=== PATIENT | male | born 1995 | race Hispanic/Latino ===

== ENCOUNTER → 2018-07-28 | Outpatient (CLI) | payer OTHER | END | disposition home or self-care (01) | LOC: RAH 11:44 | PROVIDERS: ATTEND Nurse Practitioner Family | DX: R05 Cough (principal); F32.9 Major depressive disorder, single episode, unspecified; F41.0 Panic disorder [episodic paroxysmal anxiety] | CPT/HCPCS: 71046 ==

== ENCOUNTER → 2018-08-01 | Outpatient (CLI) | payer OTHER ==
[2018-08-01 10:42] LABS: BASOPHILS % (AUTO) 1.4 % (0.0-5.0); EOSINOPHILS % (AUTO) 0.4 % (0.0-8.0); HEMATOCRIT 54.1 % (42-54); LYMPHOCYTES % (AUTO) 28.4 % (21.0-51.0); MEAN CORPUSCULAR HEMOGLOBIN 29.1 pg (27.0-33.0); MEAN CORPUSCULAR HGB CONC 33.9 g/dL (32.0-36.0); MONOCYTES % (AUTO) 6.3 % (3.0-13.0); NEUTROPHILS % (AUTO) 63.5 % (40.0-77.0); PLATELET COUNT (AUTO) 284 K/uL (130-400); RED BLOOD CELL COUNT(AUTO) 6.29 MIL/uL (4.50-6.20); RED CELL DISTRIBUTION WIDTH 13.5 % (11.0-15.5)
[2018-08-01 10:43] LABS: APPEARANCE,URINE Clear (CLEAR); BILIRUBIN,URINE Negative (NEGATIVE); COLOR,URINE Yellow (YELLOW); GLUCOSE, URINE (UA) Negative (NEGATIVE); KETONES,URINE Negative (NEGATIVE); LEUKOCYTE ESTERASE ,URINE Negative (NEGATIVE); NITRATE,URINE Negative (NEGATIVE); OCCULT BLOOD,URINE Negative (NEGATIVE); PH,URINE 5.5 (5.0-8.0); PROTEIN,URINE Negative (NEGATIVE); UROBILINOGEN,URINE 0.2 mg/dL (0.2-1.0)
[2018-08-01 11:03] LABS: ALBUMIN 4.1 g/dL (3.5-5.0); BILIRUBIN,TOTAL 0.7 mg/dL (0.2-1.0); CREATININE 0.7 mg/dL (0.5-1.5); POTASSIUM 3.7 mmol/L (3.5-5.1); THYROID STIMULATING HORMONE 1.41 uIU/mL (0.36-3.74); TOTAL PROTEIN, SERUM 7.7 g/dL (6.0-8.3)
[2018-08-01 11:50] LABS: ERYTHROCYTE SEDIMENTATION RATE 1 MM/HR (0-15)
== END | disposition home or self-care (01) ==
LOC: LAB 10:13
PROVIDERS: ATTEND Nurse Practitioner Family
DX: R05 Cough (principal); F32.9 Major depressive disorder, single episode, unspecified; F41.0 Panic disorder [episodic paroxysmal anxiety]
CPT/HCPCS: 36415; 80053; 80061; 81003; 82306; 84439; 84443; 85025; 85651

== ENCOUNTER 2018-11-29 08:26 | Emergency (ER) | payer OTHER ==
[2018-11-29] MEDS ORDERED: LIDOCAINE HCL-MPF 1% 2ML VIAL ONE (09:10)
[2018-11-29] MEDS ORDERED: DEXAMETHASONE SOD PHOSPHATE 4 MG/ML 1ML VIAL ONE (09:10)
[2018-11-29] MEDS ORDERED: CEFTRIAXONE SODIUM 1 GM ONE (09:10)
== END 2018-11-29 09:39 | disposition home or self-care (01) ==
LOC: EDH 08:26
DX: J02.9 Acute pharyngitis, unspecified (principal); J45.909 Unspecified asthma, uncomplicated; Z88.1 Allergy status to other antibiotic agents; Z72.0 Tobacco use
CPT/HCPCS: 87880; 96372 ×2; 99284; J0696; J1100; J3490

== ENCOUNTER 2018-12-01 18:16 | Inpatient (IN) | payer OTHER ==
[~2018-12-01] VITALS: Ht 172.7 cm; Wt 142.7 kg
[2018-12-01 18:45] LABS: BASOPHILS % (AUTO) 1.1 % (0.0-5.0); EOSINOPHILS % (AUTO) 0.9 % (0.0-8.0); HEMATOCRIT 48.1 % (42-54); LYMPHOCYTES % (AUTO) 26.4 % (21.0-51.0); MEAN CORPUSCULAR HEMOGLOBIN 28.2 pg (27.0-33.0); MEAN CORPUSCULAR HGB CONC 33.2 g/dL (32.0-36.0); MEAN CORPUSCULAR VOLUME 84.9 fL (79-99); MONOCYTES % (AUTO) 4.6 % (3.0-13.0); PLATELET COUNT (AUTO) 282 K/uL (130-400); RED BLOOD CELL COUNT(AUTO) 5.67 MIL/uL (4.50-6.20); RED CELL DISTRIBUTION WIDTH 12.9 % (11.0-15.5); WHITE BLOOD COUNT (AUTO) 15.1 K/uL (4.8-10.8)
[2018-12-01 19:04] LABS: CREATININE 0.8 mg/dL (0.5-1.5); POTASSIUM 3.8 mmol/L (3.5-5.1)
[2018-12-01] MEDS ORDERED: IOHEXOL-350 50ML VIAL IV ONE (19:04)
[2018-12-01 19:08] LABS: ALBUMIN 3.7 g/dL (3.5-5.0); BILIRUBIN,DIRECT 0.1 mg/dL (0.0-0.3); BILIRUBIN,TOTAL 0.2 mg/dL (0.2-1.0)
[2018-12-01 19:17] LABS: APPEARANCE,URINE Clear (CLEAR); BILIRUBIN,URINE Negative (NEGATIVE); COLOR,URINE Yellow (YELLOW); GLUCOSE, URINE (UA) Negative (NEGATIVE); KETONES,URINE Negative (NEGATIVE); LEUKOCYTE ESTERASE ,URINE Negative (NEGATIVE); NITRATE,URINE Negative (NEGATIVE); OCCULT BLOOD,URINE Negative (NEGATIVE); PH,URINE 5.5 (5.0-8.0); PROTEIN,URINE Negative (NEGATIVE); UROBILINOGEN,URINE 0.2 mg/dL (0.2-1.0)
[2018-12-01] MEDS ORDERED: CLINDAMYCIN 900 MG/D5% WATER 50 ML IV ONE (20:17)
[2018-12-02] MEDS ORDERED: HYDROCODONE/ACETAMINOPHEN 5/325 MG TAB PO PRN
[2018-12-02] MEDS ORDERED: ONDANSETRON HCL 4 MG/2 ML VIAL IV PRN
[2018-12-02 00:20] VITALS: BP 150/91
[2018-12-02] MEDS ORDERED: SODIUM CHLORIDE 0.9% 250 ML IV ONE (01:43)
[2018-12-02] MEDS: HYDROCODONE/ACETAMINOPHEN 5/325 MG TAB PO PRN ×3 (01:54→23:06)
[2018-12-02] MEDS ORDERED: CLINDAMYCIN 600 MG/D5% WATER 50 ML IV ONE (04:00)
[2018-12-02] MEDS: CLINDAMYCIN 600 MG/D5% WATER 50 ML IV SCH ×3 (04:02→21:44)
[2018-12-02 04:25] VITALS: BP 135/57
[2018-12-02 07:30] VITALS: BP 108/58
[2018-12-02] MEDS: FAMOTIDINE/PF 20 MG/2 ML VIAL IV SCH ×2 (09:25→21:44)
[2018-12-02] MEDS: PREDNISONE 20 MG TABLET PO SCH (09:25)
[2018-12-02 11:00] VITALS: BP 144/87
--- NOTE | 2018-12-02 12:18 | NUR ---
DCP CM met with pt discussed dc plans. Pt is independent prior to admission, lives at home with parents. Denies any equipments/services. Pt feels safe to go back home, mother able to assist with transportation and needs. DC plan to home once stable. CM to cont to follow up. Addendum: 12/02/18 at 1219 by KATJA THOMAS LVN CM Amended: Links added.
[2018-12-02 16:00] VITALS: BP 133/79
[2018-12-02 20:00] VITALS: BP 158/82
[2018-12-02] MEDS: NICOTINE 14 MG/ 24 HR PATCH TD SCH (21:44)
[2018-12-03] VITALS: BP 132/76
[2018-12-03 04:00] VITALS: BP 128/95
[2018-12-03] MEDS: CLINDAMYCIN 600 MG/D5% WATER 50 ML IV SCH (05:48)
[2018-12-03 06:06] LABS: BASOPHILS % (AUTO) 0.4 % (0.0-5.0); EOSINOPHILS % (AUTO) 0.9 % (0.0-8.0); HEMATOCRIT 45.9 % (42-54); LYMPHOCYTES % (AUTO) 27.4 % (21.0-51.0); MEAN CORPUSCULAR HEMOGLOBIN 28.9 pg (27.0-33.0); MEAN CORPUSCULAR HGB CONC 33.9 g/dL (32.0-36.0); MEAN CORPUSCULAR VOLUME 85.4 fL (79-99); MONOCYTES % (AUTO) 6.1 % (3.0-13.0); NEUTROPHILS % (AUTO) 65.2 % (40.0-77.0); NUCLEATED RED BLOOD CELLS 0.1 % (0.0-0.19); PLATELET COUNT (AUTO) 243 K/uL (130-400); RED BLOOD CELL COUNT(AUTO) 5.38 MIL/uL (4.50-6.20); RED CELL DISTRIBUTION WIDTH 12.7 % (11.0-15.5); WHITE BLOOD COUNT (AUTO) 14.3 K/uL (4.8-10.8)
[2018-12-03 06:23] LABS: CREATININE 0.8 mg/dL (0.5-1.5); POTASSIUM 4.1 mmol/L (3.5-5.1)
[2018-12-03 07:30] VITALS: BP 126/65
[2018-12-03] MEDS: PREDNISONE 20 MG TABLET PO SCH (09:41)
[2018-12-03] MEDS: FAMOTIDINE/PF 20 MG/2 ML VIAL IV SCH (09:42)
[2018-12-03] MEDS: NICOTINE 14 MG/ 24 HR PATCH TD SCH (09:42)
[2018-12-03] MEDS ORDERED: PRED10TA3 PO (10:09)
[2018-12-03] MEDS ORDERED: CLIN300C9 PO (10:09)
== END 2018-12-03 12:53 | disposition home or self-care (01) | DRG 645 ==
LOC: EDH 18:16 → EDHIP 23:25 → 3DH 23:51
PROVIDERS: ADMIT Internal Medicine; ATTEND Internal Medicine
DX: E04.1 Nontoxic single thyroid nodule (principal); F12.90 Cannabis use, unspecified, uncomplicated; F17.210 Nicotine dependence, cigarettes, uncomplicated; D72.829 Elevated white blood cell count, unspecified; J45.909 Unspecified asthma, uncomplicated; Z88.0 Allergy status to penicillin; Z88.8 Allergy status to other drugs, medicaments and biological substances
CPT/HCPCS: 36415; 70491; 80048; 80076; 81003; 83605; 83690; 85025; 87040; 87880; G0378; J3490; J7030; Q9967

== ENCOUNTER 2019-01-05 10:13 | Day surgery (SDC) | payer OTHER ==
[2018-12-30 11:04] LABS: BASOPHILS % (AUTO) 1.2 % (0.0-5.0); EOSINOPHILS % (AUTO) 1.8 % (0.0-8.0); HEMATOCRIT 47.3 % (42-54); LYMPHOCYTES % (AUTO) 28.6 % (21.0-51.0); MEAN CORPUSCULAR HEMOGLOBIN 28.9 pg (27.0-33.0); MEAN CORPUSCULAR VOLUME 84.8 fL (79-99); MONOCYTES % (AUTO) 5.8 % (3.0-13.0); NEUTROPHILS % (AUTO) 62.6 % (40.0-77.0); PLATELET COUNT (AUTO) 230 K/uL (130-400); RED BLOOD CELL COUNT(AUTO) 5.58 MIL/uL (4.50-6.20); RED CELL DISTRIBUTION WIDTH 12.9 % (11.0-15.5); WHITE BLOOD COUNT (AUTO) 9.4 K/uL (4.8-10.8)
[2018-12-30 11:42] VITALS: BP 141/70
[2018-12-30 12:15] LABS: INR 0.94 (0.85-1.15); PARTIAL THROMBOPLASTIN TIME 30.1 SEC (26.3-35.5); PROTHROMBIN TIME 9.9 SEC (9.6-11.6)
[~2019-01-05] VITALS: Ht 170.2 cm; Wt 145.8 kg
[2019-01-05] VITALS (17 sets, daily range): BP systolic 115–151; BP diastolic 61–87
[2019-01-05] MEDS ORDERED: LIDOCAINE 1%-EPI 1:100,000 20 ML VIAL IJ ONE (11:12)
[2019-01-05] MEDS ORDERED: ONDANSETRON HCL 4 MG/2 ML VIAL ONE (11:20)
[2019-01-05] MEDS ORDERED: DEXAMETHASONE SOD PHOSPHATE 10MG/ML 1ML VIAL ONE (11:20)
[2019-01-05] MEDS ORDERED: MIDAZOLAM HCL 1 MG/ML 2ML VIAL ONE (11:20)
[2019-01-05] MEDS ORDERED: SUCCINYLCHOLINE 200MG/10ML SYR ONE (11:20)
[2019-01-05] MEDS ORDERED: ROCURONIUM 10MG/1ML SYR 10 MG/ML ML ONE (11:20)
[2019-01-05] MEDS ORDERED: NEOSTIGMINE 5MG/5ML SYR IV ONE (11:20)
[2019-01-05] MEDS ORDERED: PROPOFOL 10 MG/ML 20ML VIAL IV ONE (11:20)
[2019-01-05] MEDS ORDERED: LIDOCAINE PF 2% 5ML ABBOJECT ONE (11:20)
[2019-01-05] MEDS ORDERED: GLYCOPYRROLATE 1 MG/5 ML SYRINGE ONE (11:20)
[2019-01-05] MEDS ORDERED: FENTANYL CITRATE PF 50 MCG/1 ML 2ML VIAL ONE ×2 (11:21→12:44)
[2019-01-05] MEDS ORDERED: SODIUM CHLORIDE 0.9% 1000ML 1,000 ML IV ONE (11:28)
[2019-01-05] MEDS ORDERED: CLINDAMYCIN 900 MG/D5% WATER 50 ML IV ONE (11:38)
[2019-01-05] MEDS ORDERED: MEPERIDINE-PF 25 MG/ML SYG ONE ×2 (13:11→13:19)
--- NOTE | 2019-01-05 14:30 | NUR ---
D/C PT LEFT VIA WHEEL CHAIR ACCOMPANIED BY MOTHER. SCRIPT GIVEN TO MOM DRIVEN IN PVT CAR.
== END 2019-01-05 14:40 ==
LOC: DAH 10:13
PROVIDERS: ATTEND Otolaryngology Plastic Surgery within the Head & Neck
DX: Q89.2 Congenital malformations of other endocrine glands (principal); F17.210 Nicotine dependence, cigarettes, uncomplicated; Z98.890 Other specified postprocedural states; Z88.1 Allergy status to other antibiotic agents; Z88.8 Allergy status to other drugs, medicaments and biological substances; Z82.49 Family history of ischemic heart disease and other diseases of the circulatory system; Z83.3 Family history of diabetes mellitus; Z82.5 Family history of asthma and other chronic lower respiratory diseases
CPT/HCPCS: 36415; 60280; 85025; 85610; 85730; 88305; A4452; C1729; J0330; J1100; J2001; J2175 ×2; J2250; J2405; J2704; J2710; J3010 ×2; J3490 ×3; J7030

== ENCOUNTER 2023-02-14 14:31 | Emergency (ER) | payer OTHER ==
[~2023-02-14] VITALS: Ht 170.2 cm; Wt 170.1 kg
[2023-02-14 14:33] VITALS: BP 170/108; PULSE 87; RESP 20
[2023-02-14 15:06] LABS: APPEARANCE,URINE CLEAR (CLEAR); BILIRUBIN,URINE NEGATIVE (NEGATIVE); COLOR,URINE YELLOW (YELLOW); GLUCOSE, URINE (UA) NEGATIVE (NEGATIVE); KETONES,URINE NEGATIVE (NEGATIVE); LEUKOCYTE ESTERASE ,URINE NEGATIVE Leu/uL (NEGATIVE); NITRATE,URINE NEGATIVE (NEGATIVE); OCCULT BLOOD,URINE NEGATIVE (NEGATIVE); PH,URINE 5.5 (5.0-8.0); PROTEIN,URINE 30 mg/dL (NEGATIVE); UROBILINOGEN,URINE 0.2 mg/dL (0.2-1.0)
[2023-02-14 15:08] LABS: ADD UA MICROSCOPIC YES
[2023-02-14 15:11] LABS: BACTERIA,URINE RARE /HPF (None Seen); MUCUS,URINE RARE LPF (None Seen); RBC,URINE 0-1 /HPF (0-1); SQUAMOUS EPITHELIAL CELL,UR RARE /HPF (0-2); WBC,URINE 0-1 /HPF (0-1)
[2023-02-14] MEDS ORDERED: KETOROLAC 30MG VIAL (30MG/ML) ONE (16:16)
[2023-02-14] MEDS ORDERED: KETOROLAC 30MG VIAL (30MG/ML) IVP ONE (16:30)
[2023-02-14] MEDS ORDERED: IBUP-2070 PO (16:37)
== END 2023-02-14 16:50 | disposition home or self-care (01) ==
LOC: EDH 14:31
DX: M25.551 Pain in right hip (principal); Z88.0 Allergy status to penicillin; V86.95XA Unspecified occupant of 3- or 4- wheeled all-terrain vehicle (ATV) injured in nontraffic accident, initial encounter; Y93.89 Activity, other specified; Y92.89 Other specified places as the place of occurrence of the external cause; Y99.8 Other external cause status
CPT/HCPCS: 99285; 70450; 96374; 81001; 73502; 72125; J1885